=== PATIENT | male | born 1965 | race Caucasian/White ===

== ENCOUNTER 2017-03-09 00:25 | Emergency (ER) | payer OTHER ==
[~2017-03-09] VITALS: Ht 175.3 cm; Wt 106.4 kg
[2017-03-09 00:31] VITALS: TEMP 36.4; Ht 175.3 cm; Wt 106.4 kg
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
[2017-03-09 01:43] LABS: MANUAL MICROSCOPIC REQUIRED? NO; URINE APPEARANCE CLEAR (CLEAR); URINE BILIRUBIN NEG (NEG); URINE COLOR YELLOW; URINE NITRITE NEG (NEG); URINE PH 7.5 (4.5-7.5); UROBILINOGEN NEG (NEG)
[2017-03-09 01:49] LABS: REVIEW REQ? NO
[2017-03-09 01:50] LABS: SULFASALICYLIC ACID NEG (NEG); ZZUR CULT IF INDIC CLEAN CATCH NO
[2017-03-09 01:53] VITALS: BP 132/90; PULSE 83; O2SAT 97
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
== END 2017-03-09 01:53 | disposition home or self-care (01) ==
LOC: C.EDB 00:27
DX: S63.501A Unspecified sprain of right wrist, initial encounter (principal); S20.212A Contusion of left front wall of thorax, initial encounter; S83.92XA Sprain of unspecified site of left knee, initial encounter; V68.5XXA Driver of heavy transport vehicle injured in noncollision transport accident in traffic accident, initial encounter; Y92.89 Other specified places as the place of occurrence of the external cause; Y99.0 Civilian activity done for income or pay